=== PATIENT | male | born 1995 | race Caucasian/White ===

== ENCOUNTER 2018-08-29 19:11 | Emergency (ER) | payer BC ==
--- NOTE | 2018-08-29 19:56 | ED ---
Lower Extremity - HPI Summary HPI Summary: A 22 y/o male presents to ED c/o left calf pain s/p skateboarding accident occurring approximately 30 minutes ago. As per triage, "Pt c/o left calf pain for approximately 20 minutes. Pt states he was riding his skateboard when he jumped off and had acute pain to his calf". Currently, he is experiencing pain from the back of his left knee and down. He noted that he is not able to bear weight. During triage, the patients pain level was 9/10, however, in the ED room , the patient has a pain scale of 6-7/10. According to the patient, he was skateboarding when he jumped off and landed on his left foot. Upon landing, he felt pain shoot up his leg up in his calf. He denies any LOC, however, did have dizziness. He also denies any head injury. PMHx of torn ACL and MCL in right leg , broken collar bone. Allergic to bees and cefaclor. SHx of former cigarette smoker, however, does smoke Juul. Additionally, occasional ETOH with no history of recreational drugs. - History of Current Complaint Chief Complaint: EDExtremityLower Stated Complaint: LT LEG INJURY Time Seen by Provider: 08/29/18 19:43 Hx Obtained From: Patient Mechanism Of Injury: Other - Jumping off skateboard. Onset of Pain: Immediate Onset/Duration: Minutes - 30 minutes Severity Initially: Severe - 9/10 Severity Currently: Moderate - 6-7/10 Pain Intensity: 9 Pain Scale Used: 0-10 Numeric Timing: Constant, Lasting Minutes Location: Is Discrete @ - LLE Associated Signs And Symptoms: Positive: Dizziness Aggravating Factor(s): Movement Alleviating Factor(s): Nothing Able to Bear Weight: No - Allergies/Home Medications Allergies/Adverse Reactions: Allergies Allergy/AdvReac Type Severity Reaction Status Date / Time bee venom protein (honey bee) Allergy Anaphylatic Verified 08/29/18 19:20 Shock cefaclor [From Ceclor] Allergy Anaphylatic Verified 08/29/18 19:20 Shock PMH/Surg Hx/FS Hx/Imm Hx Endocrine/Hematology History: Denies: Hx Diabetes Cardiovascular History: Denies: Hx Hypertension Respiratory History: Denies: Hx Asthma - Surgical History Surgery Procedure, Year, and Place: TONSILLECTOMY AND METACARPAL SURGERY Infectious Disease History: No Infectious Disease History: Denies: Traveled Outside the [place] in Last 30 Days - Family History Known Family History: Positive: Diabetes - GRANDFATHER, Other - PATIENT IS ADOPTED - Social History Alcohol Use: Weekly Substance Use Type: Reports: Other - NICOTINE VIA JUUL Smoking Status (MU): Former Smoker Review of Systems Negative: Fever Positive: Other - POSITIVE: LLE pain Neurological: Other - POSITIVE: Dizziness; NEGATIVE: LOC All Other Systems Reviewed And Are Negative: Yes Physical Exam - Summary Physical Exam Summary: GENERAL: Patient is a well-developed and nourished male who is lying comfortable in the stretcher. Patient is not in any acute respiratory distress. HEAD AND FACE: Normocephalic EYES: PERRLA, EOMI x 2. EARS: Hearing grossly intact. MOUTH: Oropharynx within normal limits. NECK: Supple, trachea is midline, no adenopathy, no JVD, no carotid bruit. CHEST: Symmetric, no tenderness at palpation LUNGS: Clear to auscultation bilaterally. No wheezing or crackles. CVS: Regular rate and rhythm, S1 and S2 present, no murmurs or gallops appreciated. ABDOMEN: Soft, non-tender. Bowel sounds are normal. No abdominal abnormal pulsations. EXTREMITIES: Tender to palpation in left calf area. Worse with dorsal flexion. left Calf feels more swollen than the other side but compartment soft and neurovascularly intact. NEURO: Alert and oriented x 3. No acute neurological deficits. Speech is normal and follows commands. SKIN: Dry and warm Triage Information Reviewed: Yes Vital Signs On Initial Exam: Initial Vitals Temp Pulse Resp BP Pulse Ox 98.5 F 92 16 134/71 97 08/29/18 19:17 08/29/18 19:17 08/29/18 19:17 08/29/18 19:17 08/29/18 19:17 Vital Signs Reviewed: Yes Diagnostics - Vital Signs Vital Signs Temp Pulse Resp BP Pulse Ox 08/29/18 19:17 98.5 F 92 16 134/71 97 - Laboratory Lab Statement: Any lab studies that have been ordered have been reviewed, and results considered in the medical decision making process. - Radiology LEG XR Radiology Interpretation Completed By: ED Physician - NO ACUTE FRACTURE. PENDING OFFICIAL REPORT. Lower Extremity Course/Dx - Course Course Of Treatment: A 22 y/o male presents to ED c/o left calf pain s/p skateboarding accident occurring approximately 30 minutes ago. Workup was leg XR. XR revealed no facture. Pain is most likely secondary to gastrocnemius muscle tear. Patient was provied with crutches and instructions to not bear weight until seen by Orthopedics for further workup and management. Patient was given precautions. Precautions in particular to compartment syndrome. - Diagnoses Provider Diagnoses: Calf pain Discharge - Sign-Out/Discharge Documenting (check all that apply): Patient Departure - Discharge Plan Condition: Stable Disposition: HOME Prescriptions: Ibuprofen TAB* [Motrin TAB* 800 MG] 800 mg PO Q6H PRN #20 tab PRN Reason: Pain Patient Education Materials: Leg Pain (ED) Referrals: Karlie Flores MD [Medical Doctor] - 3 Days Additional Instructions: Follow up with orthopedics in 1-3 days. RETURN TO THE EMERGENCY DEPARTMENT FOR CHANGING OR WORSENING SYMPTOMS. - Billing Disposition and Condition Condition: STABLE Disposition: Home - Attestation Statements Document Initiated by Scribe: Yes Documenting Scribe: Clemente Stahl Provider For Whom Srinath is Documenting (Include Credential): Rashmi Devine MD Scribe Attestation: Clemente Bates, scribed for Rashmi Devine MD on 08/29/18 at 2135. Scribe Documentation Reviewed: Yes Provider Attestation: The documentation as recorded by the Clemente montano accurately reflects the service I personally performed and the decisions made by Rashmi bonilla MD
[2018-08-29] MEDS ORDERED: oxyCODONE/Acetamin 5/325 MG* TAB PO ONE (20:07)
[2018-08-29 21:17] VITALS: BP 150/89
--- NOTE | 2018-08-30 08:07 | RAD ---
Indication: Acute pain LEFT calf following injury. Comparison: No relevant prior exams available on the [facility] P[facility] for comparison. Technique: AP and lateral views LEFT lower leg. REPORT AND IMPRESSION: #. Negative for fracture or malalignment. Mild soft tissue swelling over the lateral malleolus. R0
== END 2018-08-29 21:16 | disposition home or self-care (01) ==
LOC: ED 19:11
DX: M79.662 Pain in left lower leg (principal); R42 Dizziness and giddiness; Z88.1 Allergy status to other antibiotic agents; Z91.030 Bee allergy status; Z87.891 Personal history of nicotine dependence
CPT/HCPCS: 99282; A9270-GY